=== PATIENT | female | born 1965 | race Caucasian/White ===

== ENCOUNTER → 2016-05-30 | Outpatient (CLI) | payer OTHER ==
[~2016-05-30] MED LIST: ADVAIR HFA115 MCG/21 INH; ALBUTEROL2.5 MG/0.5 IH; CLONAZEPAM2 MG PO; NAPROSYN500 MG PO; VENTOLIN HFA 1818 GM INH
== END ==
LOC: RAD 15:39
DX: R06.02 Shortness of breath (principal); G47.19 Other hypersomnia

== ENCOUNTER → 2016-08-06 | Outpatient (CLI) | payer OTHER | LOC: SLEEPLAB 09:11 | DX: G47.33 Obstructive sleep apnea (adult) (pediatric) (principal) ==

== ENCOUNTER → 2016-08-23 | Outpatient (CLI) | payer OTHER | LOC: RAD 11:06 | DX: R06.02 Shortness of breath (principal); J45.909 Unspecified asthma, uncomplicated ==

== ENCOUNTER 2018-10-24 13:38 | Emergency (ER) | payer OTHER ==
[~2018-10-24] VITALS: Ht 160 cm; Wt 99.8 kg
[2018-10-24 14:19] LABS: BASOPHILS 1.7 % (0.0-2.0); EOSINOPHILS 1.4 % (0.0-3.0); HEMATOCRIT 41.3 % (37.0-47.0); HEMOGLOBIN 14.1 gm/dL (12.0-15.0); LYMPHOCYTES 38.8 % (24.0-44.0); MCH 30.2 pg (26.0-34.0); MCHC 34.2 g/dL (28.0-37.0); MCV 88.2 fL (80.0-100.0); MONOCYTES 8.6 % (1.0-8.0); PLATELET COUNT 184 thou/uL (150-400); POLYS 49.5 % (36.0-66.0); RBC 4.68 mil/uL (4.20-5.00); RDW 13.5 % (10.5-14.5); WBC 6.1 thou/uL (4.0-11.0)
[2018-10-24 14:35] LABS: ANION GAP 9 mmol/L (7-16); BUN 12 mg/dL (7-18); CALCIUM 8.7 mg/dL (8.5-10.1); CHLORIDE 104 mmol/L (98-107); CO2 26 mmol/L (21-32); GLUCOSE 143 mg/dL (74-106); SODIUM 139 mmol/L (136-145)
[2018-10-24 14:43] LABS: TROPONIN-I <0.06 ng/mL (<0.06)
[2018-10-24 15:55] VITALS: BP 142/86
--- NOTE | 2018-10-25 09:16 | EKG ---
[address] [address] ELECTROCARDIOGRAM REPORT Name: PORTIA WICK Room #: [facility] [id number] ������������������ Admission: 10/24/18 ������������������ Attend Phys: Discharge: 10/24/18 ������������������ Date of : 65 Report #: [id number] ����������������������������������������������������������������� [id number] THIS REPORT FOR: //name// [facility] ED Test Date: 2018-10-24 Test Time: 14:07:47 Pat Name: PORTIA WICK Department: Room: Gender: F [employer]ole [employer] Hand: GRACE : 1965 Requested By: Gustavo Randall Order Number: [id number] MD: Brennon De Paz Measurements Intervals [place] Rate: 102 P: 51 [place]: 132 QRS: 56 QRSD: 83 T: 47 QT: 346 QTc: 451 Interpretive Statements Sinus tachycardia Otherwise normal tracing Compared to ECG 12/05/2013 11:36:08 No significant change was found Electronically Signed On 10-25-2018 9:16:04 CDT by Brennon De Paz [email or web address] ��������������������������������������������� <ELECTRONICALLY SIGNED> ���������������������������������������� By: Brennon De Paz MD, [facility] ��������������������������������������������� 10/25/18 0916 1407 06 Brennon De Paz MD, FACC /EPI
== END 2018-10-24 15:55 | disposition home or self-care (01) ==
LOC: ER 13:38
PROVIDERS: Emergency Medicine
DX: J45.901 Unspecified asthma with (acute) exacerbation (principal); F17.210 Nicotine dependence, cigarettes, uncomplicated